=== PATIENT | female | born 1950 ===

== ENCOUNTER → 2024-02-04 09:58 | Outpatient (REF) | payer MEDICARE, BC, SELFPAY | LOC: HWRAD 09:58 | PROVIDERS: ATTENDING PHYSICIAN Urology; FAMILY PHYSICIAN Family Medicine | DX: N39.3 Stress incontinence (female) (male) (principal); N39.41 Urge incontinence; N39.0 Urinary tract infection, site not specified | CPT/HCPCS: 76770 ==

== ENCOUNTER 2024-03-26 17:06 | Inpatient (IN) | payer MEDICARE, BC, SELFPAY ==
[2024-03-26] VITALS (9 sets, daily range): BP systolic 129–156; BP diastolic 60–88; BMI 22.7
[2024-03-26 12:58] LABS: % Immature Granulocytes 0.6 % (0-0.5); % Lymphocytes 18.6 % (20.5-51.1); % Monocytes 14.6 % (1.7-9.3); % Neutrophils 63.2 % (42.2-75.2); Absolute Basophils 0.1 10^3/uL (0-0.2); Absolute Eosinophils 0.2 10^3/uL (0-0.7); Absolute Immature Granulocytes 0.1 10^3/uL (0-0.05); Absolute Monocytes 1.6 10^3/uL (0.1-0.6); Hematocrit 37.3 % (37.0-47.0); Hemoglobin 12.7 g/dL (12.0-16.0); Mean Corpuscular Hgb 30.6 pg (27.0-31.0); Mean Corpuscular Volume 89.9 fL (81.0-99.0); Mean Platelet Volume 9.2 fL (7.4-10.4); Nucleated Red Blood Cells % 0 %; Platelet Count 374 10^3/uL (130-400); Red Blood Cell Count 4.15 10^6/uL (4.20-5.40); Red Cell Dist. Width 13.5 % (11.5-14.5)
[2024-03-26 13:12] LABS: ALT (SGPT) 18 U/L (0-35); AST (SGOT) 40 U/L (14-36); Albumin 3.7 g/dl (3.5-5.0); Alkaline Phosphatase 77 U/L (38-126); Blood Urea Nitrogen 9 mg/dl (7-17); Calcium 9.6 mg/dl (8.4-10.2); Carbon Dioxide 27 mmol/L (22-30); Chloride 101 mmol/L (98-107); Glucose 103 mg/dl (70-99); Potassium 5.1 mmol/L (3.5-5.1); Sodium 134 mmol/L (135-145); Total Bilirubin 0.4 mg/dl (0.2-1.3); Total Protein 6.4 g/dl (6.3-8.2); eGFR > 60.00
[2024-03-26 13:23] LABS: Troponin I < 0.012 ng/ml
--- NOTE | 2024-03-26 14:48 | ED.GENMED ---
History of Present Illness
<Kate Matamoros PA-C - Last Filed: 03/26/24 21:36>
General
Chief Complaint: Chest Pain
Source: patient
Exam Limitations: none
Time Seen by Provider: 03/26/24 14:24
Nursing documentation reviewed up to this point in time: agreed with
Travel History
Have you had any contact with someone who has COVID-19?: No
Do you have any symptoms of coronavirus? Fever > 100 degrees, chills, cough, shortness of breath, sore throat, loss of taste or smell, muscle aches, or headache?: No
History of Present Illness
History of Present Illness:
Patient is a 74-year-old female with history of interstitial lung disease, Sjogren's presenting to the emergency department for evaluation of progressively worsening shortness of breath and chest pain. Patient initially noticed symptoms
approximately 1 week ago with progressive worsening since. She describes a pressure type pain in her left mid chest without any radiation. She endorses significant dyspnea, worse with exertion. Today�patient states she was unable to walk to her
car without becoming extremely winded and decided to come to the emergency department for further evaluation. She also notices worsening in shortness of breath while lying flat. Patient has had a very mild dry cough but denies any sputum
production. Patient denies any fever, chills, headache, pain in lower extremities or swelling in lower extremities. Patient denies any recent weight gain. Patient denies any recent travel or recent surgeries.
No personal or family history of blood clots.
Patient was recently seen by her manager house at [facility] on 03/16/24 without any known worsening in condition.
Review of Systems
<Kate Matamoros PA-C - Last Filed: 03/26/24 21:36>
Review of Systems
Allergies reviewed?: Yes
All Other Systems: ROS reviewed and negative except as documented in HPI and ROS
Phy Exam
<Kate Matamoros PA-C - Last Filed: 03/26/24 21:36>
Physical Exam
Physical Exam:
Vitals: Patient's vital signs are stable. Afebrile
General: Patient is well appearing, no acute distress. Nontoxic-appearing
Skin: Warm and dry, no rashes or lesions
Head: Normocephalic, atraumatic
Eyes: Sclera nonicteric. EOMs intact. No nystagmus.
Throat: Protecting airway
Neck: Normal ROM, no cervical spine tenderness, no meningismus. Trachea midline
Cardiac: Regular rate and rhythm, no murmurs. Chest wall nontender to palpation
Pulm: Mild increased work of breathing. Bibasilar crackles. No wheezing noted.
Abdomen: Abdomen soft. No abdominal tenderness.
Extremities: No evidence of cyanosis or edema. Good distal pulses
Neuro: AAOx3. CN II-XII intact. No focal neurologic deficits.
Psychiatric: Normal affect.
Scores
<Kate Matamoros PA-C - Last Filed: 03/26/24 21:36>
Heart Score for Chest Pain Patients
STEMI patient?: No
History: Slightly or Non-Suspicious
ECG: Normal
Age: >/= 65 years
Risk Factors: 1 or 2 Risk Factors
Troponin: </= Normal Limit
Heart Score for Chest Pain Patients: 3
Heart Score Risk: 2.5% MACE over next 6 weeks
Course
<Kate Matamoros PA-C - Last Filed: 03/26/24 21:36>
Orders/Labs/Results
Orders:
Orders
03/26/24 12:32
Electrocardiogram (*1) Urgent
Reason for Study: Chest Pain
03/26/24 12:33
EKG- Treatment ONCE
03/26/24 12:47
CR Chest - 2 Views Urgent
Comment:
Reason For Exam: CP/SOB
03/26/24 12:51
Complete Blood Count/With Diff Urgent
Comprehensive Metabolic Panel Urgent
NT-proBNP Urgent
Comment: BNP ADDED ON BY FLOOR 2:10PM 03-26-24
Troponin I Urgent
03/26/24 14:09
Add On- LAB Urgent
Tests Added?: BNP
03/26/24 Dinner
Regular
At Your Request: Full Participation
Does patient need a safe tray?: No
Regular diet: Gluten Free
03/26/24 16:53
Admit/Transfer Patient As Directed
Co-Sign Provider:
Level of Care: Inpatient admission
Assign to:: Telemetry
Physician / Group: Hospitalist
Diagnosis: ILD
Reason for Telemetry: Medication for Arrhythmia
Date to Stop Telemetry: 03/28/24
Time to Stop Telemetry: 11:00
Reason for Hospitalization: .
Expected length of stay greater than two midnights?: Yes
ELOS- Estimated Length of Stay in days: 3
I certify the patient meets the requirements for IP care: Yes
Code Status As Directed
Resuscitation Status: Full Code
03/26/24 17:40
Consult Pulmonary [PULMONARY CONSULT] Routine
Consulting Provider: Choco Gomez
Was physician already notified: Yes
Reason for consult: ILD with sob
DX Deep Vein Thrombosis Video Routine
03/26/24 18:00
MethylPREDNISolone PF [Solu-Medrol Pf] 40 mg IV Q12H
03/26/24 20:00
Heparin 5,000 units SC Q12
03/27/24 08:00
Pantoprazole [Protonix] 40 mg PO DAILY
03/28/24 11:00
DC Protocol for Telemetry ONCE
Abnormal Lab Results
03/26/24
12:51
WBC 11.0 H 10^3/uL
(4.8-10.8)
RBC 4.15 L 10^6/uL
(4.20-5.40)
Abs Immat Gran (auto) 0.1 H 10^3/uL
(0-0.05)
Absolute Neuts (auto) 7.0 H 10^3/uL
(1.4-6.5)
Absolute Monos (auto) 1.6 H 10^3/uL
(0.1-0.6)
Immature Gran % 0.6 H %
(0-0.5)
Lymphocytes % 18.6 L %
(20.5-51.1)
Monocytes % 14.6 H %
(1.7-9.3)
Sodium 134 L mmol/L
(135-145)
Glucose 103 H mg/dl
(70-99)
AST 40 H U/L
(14-36)
03/26/24 12:51
03/26/24 12:51
Vital Signs
Initial and Last Documented VS:
Initial Vital Signs
Temp Pulse Resp BP Pulse Ox
98.1 F 84 18 142/71 94
03/26/24 12:40 03/26/24 12:40 03/26/24 12:40 03/26/24 12:40 03/26/24 12:40
Last Documented Vital Signs
Temp Pulse Resp BP Pulse Ox
98.3 F 91 20 147/66 92
03/26/24 19:20 03/26/24 19:20 03/26/24 19:20 03/26/24 19:20 03/26/24 19:20
<Crissy Sagastume MD - Last Filed: 03/26/24 16:01>
Orders/Labs/Results
Orders:
Orders
03/26/24 12:32
Electrocardiogram (*1) Urgent
Reason for Study: Chest Pain
03/26/24 12:33
EKG- Treatment ONCE
03/26/24 12:47
CR Chest - 2 Views Urgent
Comment:
Reason For Exam: CP/SOB
03/26/24 12:51
Complete Blood Count/With Diff Urgent
Comprehensive Metabolic Panel Urgent
NT-proBNP Urgent
Comment: BNP ADDED ON BY FLOOR 2:10PM 03-26-24
Troponin I Urgent
03/26/24 14:09
Add On- LAB Urgent
Tests Added?: BNP
03/26/24 Dinner
Regular
At Your Request: Full Participation
Does patient need a safe tray?: No
Regular diet: Gluten Free
03/26/24 16:53
Admit/Transfer Patient As Directed
Co-Sign Provider:
Level of Care: Inpatient admission
Assign to:: Telemetry
Physician / Group: Hospitalist
Diagnosis: ILD
Reason for Telemetry: Medication for Arrhythmia
Date to Stop Telemetry: 03/28/24
Time to Stop Telemetry: 11:00
Reason for Hospitalization: .
Expected length of stay greater than two midnights?: Yes
ELOS- Estimated Length of Stay in days: 3
I certify the patient meets the requirements for IP care: Yes
Code Status As Directed
Resuscitation Status: Full Code
03/26/24 17:40
Consult Pulmonary [PULMONARY CONSULT] Routine
Consulting Provider: Choco Gomez
Was physician already notified: Yes
Reason for consult: ILD with sob
DX Deep Vein Thrombosis Video Routine
03/26/24 18:00
MethylPREDNISolone PF [Solu-Medrol Pf] 40 mg IV Q12H
03/26/24 20:00
Heparin 5,000 units SC Q12
03/27/24 08:00
Pantoprazole [Protonix] 40 mg PO DAILY
03/28/24 11:00
DC Protocol for Telemetry ONCE
Abnormal Lab Results
03/26/24
12:51
WBC 11.0 H 10^3/uL
(4.8-10.8)
RBC 4.15 L 10^6/uL
(4.20-5.40)
Abs Immat Gran (auto) 0.1 H 10^3/uL
(0-0.05)
Absolute Neuts (auto) 7.0 H 10^3/uL
(1.4-6.5)
Absolute Monos (auto) 1.6 H 10^3/uL
(0.1-0.6)
Immature Gran % 0.6 H %
(0-0.5)
Lymphocytes % 18.6 L %
(20.5-51.1)
Monocytes % 14.6 H %
(1.7-9.3)
Sodium 134 L mmol/L
(135-145)
Glucose 103 H mg/dl
(70-99)
AST 40 H U/L
(14-36)
03/26/24 12:51
03/26/24 12:51
Vital Signs
Initial and Last Documented VS:
Initial Vital Signs
Temp Pulse Resp BP Pulse Ox
98.1 F 84 18 142/71 94
03/26/24 12:40 03/26/24 12:40 03/26/24 12:40 03/26/24 12:40 03/26/24 12:40
Last Documented Vital Signs
Temp Pulse Resp BP Pulse Ox
98.3 F 91 20 147/66 92
03/26/24 19:20 03/26/24 19:20 03/26/24 19:20 03/26/24 19:20 03/26/24 19:20
<Kate Matamoros PA-C - Last Filed: 03/26/24 21:36>
MDM/Problems Addressed
Differential Diagnosis Includes:
Not limited to: Restrictive lung disease, interstitial lung disease, CHF, anemia, bronchitis, pneumonia, doubt PE or ACS
MDM/Problems Addressed:
74-year-old female with history interstitial lung disease, Sjogren's presenting with worsening dyspnea on exertion and mild chest discomfort over the past week. No fever, chills, productive cough. Patient recently seen by manager house at [facility]
without any noted acute worsening ILD. Patient's vital signs are stable on arrival she is oxygenating around 94 on room air. She is afebrile. Physical exam as above. Patient is well-appearing, in no apparent distress. Heart regular rate and
rhythm. She does have some mild increased work of breathing and bibasilar crackles noted on lung exam. No wheezing appreciated. No JVD. No evidence of peripheral edema. No edema of lower legs. Great distal pulses. EKG shows normal sinus
rhythm without any signs of acute ischemic changes. Labs obtained in triage without any clinically significant abnormalities. Initial troponin is normal. Given symptoms been ongoing for the past week or so�feel this is enough to rule out acute
CO. Will check proBNP. Will check chest x-ray. Will check walking pulse ox. Will monitor patient closely and reassess.
Chest x-ray shows signs of vascular congestion possibly volume overload versus CHF. proBNP is noted to be 379. It is possible that this could be an acute onset CHF without significant elevation in proBNP yet.
Patient was monitored for walking pulse ox which dipped very quickly per nurse to 80. Nurse placed patient back in bed and placed on 2 L nasal cannula with prompt improvement. Patient was able discontinue oxygen relatively quickly after laying
back down in bed.
Unsure if exertional shortness of breath may be due to possible early acute onset CHF versus worsening ILD. Will admit to hospitalist for further evaluation/management. Discussed with hospitalist. Discussed with patient.
Chronic conditions affecting care:
Interstitial lung disease
Acute Exacerbation and/or Progression of Chronic Illness:
Acute CHF versus worsening interstitial lung disease
<Kate Matamoros PA-C - Last Filed: 03/26/24 21:36>
*Radiology
Radiology exam reviewed: preliminary read by ED provider and radiology read reviewed
*Pulse Oximetry
Patient hypoxic: yes (Hypoxic to 80)
*EKG
Interpreted by ED Provider?: Yes
EKG Intrepretation Date: 03/26/24
Interpretation: abnormal
Comparison EKG: no comparison EKG present
Heart Rate: 90
Rate: normal
Rhythm: sinus and PVC's
QRS Pattern: normal QRS
Ischemia: no ischemia
*Litigation Services Manager Interpretation
Rate: normal
Interpretation: normal
Heart Rate: 78
Rhythm: sinus
*Critical Care Note
Total Time (30-74mins, 75-104mins- exclusive of procedures): Not Applicable
<Kate Matamoros PA-C - Last Filed: 03/26/24 21:36>
Patient Management
Discussion with other providers: Hospitalist
ED Attending Note
<Kate Matamoros PA-C - Last Filed: 03/26/24 21:36>
-
Portions of this chart may have been created with voice recognition software.� Occasional wrong word or��sound alike� substitutions may have occurred due to the inherent limitations of voice recognition software.
<Crissy Sagastume MD - Last Filed: 03/26/24 16:01>
ED Attending Note
Patient seen and examined by attending physician: Yes
I performed the substantive portion of visit, reviewed & personally made and approve the management plan that is documented in note by myself or TATIANA.: Yes
ED Attending Note:
Patient appears comfortable at rest but has crackles on lung exam. Her abdomen is soft and nontender. Patient does drop her pulse ox with ambulating. Of concern could be new onset congestive heart failure
Discharge Plan
Departure
Patient Disposition: Admit
Date of Disposition: 03/26/24
Time of Disposition: 15:46
Presentation/result/management discussed w/ accepting MD/DO: Hospitalist
Discharge Problem:
Exertional shortness of breath, Chest pain
Interventions
Interventions:
*Nursing Disposition Last Done: 03/26/24 17:38
ED- Cardiac Assessment Last Done: 03/26/24 14:32
Discharge Date and Time
Discharge Date/Time: 03/26/24 17:39
[2024-03-26 14:51] LABS: NT-proBNP 379 pg/ml
--- NOTE | 2024-03-26 16:44 | HPS.HSE ---
Family Physician
-
Family Physician: Yumiko Watson
Chief Complaint
-
SOB mostly on exertion
History of Present Illness
This is a 74 year old female with past medical history of interstitial lung disease who presents for dyspnea on exertion. The patient states she has been experiencing exertional sob for the past week. Yesterday she reports she was having increased
difficulty breathing with exertion, fatigue. She reported that she saw her primary x ray consultant a week ago and no changes were made. She was scheduled to have echocardiogram in next few months. She denies chest pain. She takes her medications
regularly. She was noticed to have mild leukocytosis admission. She denied cough or sputum production. She denied fever or chills
The ER, her oxygen dipped down to 80 upon going to the bathroom.
Medical History
Past Medical History
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
Past Surgical History: Reports Other (No recent major surgery)
Social History
Tobacco: Non-smoker
Alcohol: Occasional
Drug: None
Personal:
Living: With Family
Employment: Retired
Family History
Family History: Not pertinent
Allergies / Home Medications
Allergies reflects when Allergies were last updated in [facility].
Home Medications with original date entered in [facility]
Allergy/Medication List:
Allergies
Allergy/AdvReac Type Severity Reaction Status Date / Time
gluten Allergy Unknown Verified 03/26/24 12:46
pineapple Allergy Unknown Verified 03/26/24 12:46
Review of Systems
-
History Source: Patient
A 12 point ROS was completed and negative except as noted: Yes
Constitutional: Denies Fever or Chills
EENT: Denies Sore Throat
Respiratory: Reports Trouble Breathing
Cardiac: Denies Chest Pain
Abdomen/GI: Denies Abdominal Pain
: Denies Dysuria
Musculoskeletal: Denies Joint Pain or Joint Swelling
Skin: Denies Rash
Neurological: Denies Numbness
Endocrine: Denies Temp Intolerance
Hematologic/Lymphatic: Denies Bruising
Psych: Denies Panic Disorder
Physical Exam
Vital Signs
Vital Signs
Temp Pulse Resp BP Pulse Ox
98.1 F 79 16 141/60 96
03/26/24 12:40 03/26/24 16:15 03/26/24 16:15 03/26/24 16:00 03/26/24 16:15
Physical Exam
General: Well Nourished, No Apparent Distress and Comfortable
HEENT: Moist mucous membranes, Atraumatic and Nose Appears Normal
Respiratory: Rales (Mild rales at the bases, mostly inspiratory)
Cardiac: S1/S2 and Regular Rhythm
GI: Soft and Non Tender
Rectal: No Maroon Stools
Genito-urinary: No costovertebral tender
Musculoskeletal: No Clubbing, No Cyanosis and No Edema
Skin: Warm; No Jaundice
Neuro: AO x 3; No Slurred Speech, Facial Droop or Tremors
Psych: Calm and Intact Judgment/Insight
Laboratory Results
-
03/26/24 12:51
03/26/24 12:51
Laboratory Results
Total Bilirubin 0.4 mg/dl (0.2-1.3) 03/26/24 12:51
AST 40 U/L (14-36) H 03/26/24 12:51
ALT 18 U/L (0-35) 03/26/24 12:51
Alkaline Phosphatase 77 U/L (38-126) 03/26/24 12:51
Troponin I < 0.012 ng/ml 03/26/24 12:51
Impression/Plan
-
74 years old female with interstitial lung disease presented with worsening exertional shortness of breath over the last few days
# Nonspecific interstitial pneumonitis flareup
Admit the patient to the hospital
I reviewed patient's portal with [facility] per patient's permission . Patient has diagnosis of nonspecific interstitial pneumonitis. She had recent scan with contrast of the chest that findings were consistent with nonspecific interstitial pneumonitis
related to rheumatoid arthritis/connective tissue disease more than usual interstitial pneumonia.
Continue home medication including CellCept and start the patient on IV methylprednisone therapy
Doubt congestive heart failure with lack of distended JVD, peripheral edema, low proBNP
Monitor oxygen level and eventual home O2 evaluation
I did not appreciate wheezes upon examination. Negative troponin. EKG normal sinus rhythm without acute ischemic changes
Will consult pulmonary, appreciate input
# History of rheumatoid arthritis.
Will continue home medication without interruption.
# History of celiac disease.
# Hyponatremia at 134 upon admission. Monitor sodium level. No confusion
# History of GERD, continue PPI
#DVT prophylaxis
Total time spent to see the patient, examine the patient on the floor, review data and lab results, discuss treatment plan with patient, ER doctor, nursing staff around 75 minutes
[2024-03-26] MEDS: SOLU-MEDROL PF 40 MG IV (18:03)
--- NOTE | 2024-03-26 18:12 | PTCARENOTE ---
Received patient from ER at 1730, accompanied by . No c/o pain. Mild REBOLLAR denies chest pain , no short of breath at rest.
[2024-03-26] MEDS: HEPARIN 5000 UNITS SC (21:15)
[2024-03-26] MEDS: RESTASIS 0.05% OPHTHALMIC EMULSION 1 DROPS OPHTH (21:16)
[2024-03-26] MEDS: CELLCEPT 500 MG PO (21:18)
[2024-03-27 03:50] VITALS: BP 127/74
[2024-03-27] MEDS: SOLU-MEDROL PF 40 MG IV ×2 (05:37→17:46)
[2024-03-27] MEDS: FLUSH (NSS) 1 FLUSH IV (05:38)
[2024-03-27 06:00] VITALS: BMI 22.3
[2024-03-27 07:29] VITALS: BP 133/75
[2024-03-27] MEDS: HEPARIN 5000 UNITS SC ×2 (08:45→21:00)
[2024-03-27] MEDS: PLAQUENIL 400 MG PO (08:46)
[2024-03-27] MEDS: PROTONIX 40 MG PO (08:46)
[2024-03-27] MEDS: CELLCEPT 500 MG PO ×2 (08:46→21:09)
[2024-03-27] MEDS: RESTASIS 0.05% OPHTHALMIC EMULSION 1 DROPS OPHTH ×2 (08:47→21:08)
--- NOTE | 2024-03-27 09:10 | PTCARENOTE ---
Patient with Left eyebrow swollen achy and 'burning' - hospitalist aware . Area dry at present. Pt moved to isolation room as pt has shingles , valtrex started- on Contact and Airborne isolation.
--- NOTE | 2024-03-27 09:59 | W.PN.HOSP.TC ---
Today's Communication/Plan
-
Anti-viral TX for shingles.
Contact isolation
Steroid therapy
Eventual Home O2
Assessment / Plan
Assessment / Plan
Physical Exam
General: Well Nourished, No Apparent Distress and Comfortable
HEENT: Moist mucous membranes, Atraumatic and Nose Appears Normal
Respiratory: Rales (Mild rales at the bases, mostly inspiratory)
Cardiac: S1/S2 and Regular Rhythm
GI: Soft and Non Tender
Rectal: No Maroon Stools
Genito-urinary: No costovertebral tender
Musculoskeletal: No Clubbing, No Cyanosis and No Edema
Skin: Warm; No Jaundice
Neuro: AO x 3; No Slurred Speech, Facial Droop or Tremors
Psych: Calm and Intact Judgment/Insight
74 years old female with interstitial lung disease presented with worsening exertional shortness of breath over the last few days
# Nonspecific interstitial pneumonitis flare-up
She feels better, less sob upon walking
No hypoxia, not tested for ambulatory SaO2 yet, will do upon discharge
I reviewed patient's portal with [place] per patient's permission . Patient has diagnosis of nonspecific interstitial pneumonitis. She had recent scan with contrast of the chest that findings were consistent with nonspecific interstitial pneumonitis
related to rheumatoid arthritis/connective tissue disease more than usual interstitial pneumonia.
Continue home medication including CellCept
C/W IV methylprednisone therapy
Doubt congestive heart failure with lack of distended JVD, peripheral edema, low proBNP
I did not appreciate wheezes upon examination. Negative troponin. EKG normal sinus rhythm without acute ischemic changes
Will consult pulmonary, appreciate input
# Left upper eyelid acute shingles( acute localized zoster infection). No hx of shingles before. She had vaccine before so hopefully it will keep it mild
Vesicles noted on exam. Very few. She had itching, tingling and burning
Advise pt to avoid scratching or touching area to avoid inter-ocular spread
Stat on Acyclovir dose 1 gm TID. Contact isolation.
# History of rheumatoid arthritis.
Continue home medication without interruption.
# History of celiac disease. Continue with a gluten-free diet.
# Hyponatremia at 134 upon admission. Monitor sodium level in am. No confusion
# History of GERD, continue PPI
#DVT prophylaxis
Total time spent to see the patient, examine the patient on the floor, review data and lab results, discuss treatment plan with patient, nursing staff around 57 minutes
Anticipated Discharge: 24 - 48 hours
Subjective/Interval History
-
Date of Service: March 27, 2024
She feels better today, less sob when she walked
No chest pain
Left eye lid burning
Objective Data
-
Vital Signs:
Vital Signs
Temp Pulse Resp BP Pulse Ox
97.6 F 86 21 133/75 94
03/27/24 07:29 03/27/24 07:29 03/27/24 07:29 03/27/24 07:29 03/27/24 09:04
I&O
03/26/24 03/27/24 03/28/24
06:59 06:59 06:59
Intake Total 1200 / 1200
Balance 1200 / 1200
[2024-03-27 11:00] VITALS: BP 125/68
[2024-03-27] MEDS: VALTREX 1000 MG PO ×3 (11:07→21:09)
--- NOTE | 2024-03-27 12:18 | CON.PUL ---
Consultation
Consultation Request
Date/Time Consultation Requested: 03/27/2024
Date/Time Consultation Performed: 03/27/2024
Requesting Provider: Dr. Orellana
Performing Provider: Dr. Choco Marcum
Reason for Consultation: Acute hypoxemic respiratory failure-possible interstitial lung disease flar
Medical History
-
History of Present Illness:
74-year-old woman with past medical history of interstitial lung disease who presented to the hospital with exertional dyspnea. She usually follows up at [facility]. The first time here at [facility].
Patient reports worsening shortness of breath for the last week. Worsened significantly the day prior admission associated with fatigue.
She was seen by her vp human resources about a week ago and no changes were made in her medications. Denies any exertional chest pain. Denies any fevers or chills. She has been compliant with medication.
Denies swallowing problems. Denies any rash. Denies any back pain.
Denies GI or symptoms.
Pulse ox was down to 80% in the emergency room.
-
This morning he was noted to have vesicular rash around the left orbit. Diagnosed with shingles. Started on Valtrex.
-
Patient reports being diagnosed with interstitial lung disease about 7 years ago. Initially on oxygen. He was weaned off after starting immunosuppression.
She subsequently was diagnosed with rheumatoid arthritis/Sjogren's and celiac disease.
Her interstitial lung disease associated with rheumatoid arthritis.
Has been stable.
6 months ago CellCept was decreased to 500 twice a day. Prednisone has been at 5 mg p.o.
No new medication changes.
Past Medical History
Past Medical History: Other (See assessment and plan section)
Social History
Tobacco: Non-smoker
Alcohol: Occasional
Drug: None
Personal:
Living: With Family
Employment: Retired
Family History
Family History: Reviewed & Not Pertinent
Allergies / Home Medications
Allergies
Allergy/AdvReac Type Severity Reaction Status Date / Time
gluten Allergy Unknown Verified 03/26/24 12:46
pineapple Allergy Unknown Verified 03/26/24 12:46
Home Medications
�Medication �Instructions �Recorded �Confirmed �Last Taken �Type
cyclosporine 0.05 % eye drops in a 1 drp BOTH EYES Q12H 03/26/24 03/26/24 03/25/24 History
dropperette (Restasis)
hydroxychloroquine 200 mg tablet 400 mg PO DAILY 03/26/24 03/26/24 03/25/24 History
ibuprofen 800 mg tablet 800 mg PO DAILYPRN PRN mild pain 03/26/24 03/26/24 03/25/24 History
montelukast 10 mg tablet 10 mg PO HS 03/26/24 03/26/24 03/25/24 History
mycophenolate mofetil 500 mg tablet 500 mg PO BID 03/26/24 03/26/24 03/25/24 History
omeprazole 40 mg capsule,delayed 40 mg PO DAILY 03/26/24 03/26/24 03/25/24 History
release
prednisone 1 mg tablet 5 mg PO DAILY 03/26/24 03/26/24 03/25/24 History
Review of Systems
-
History Source: Patient
All other systems: Negative unless noted
Vitals / Labs / Diagnostic Testing
Vital Signs
Temp Pulse Resp BP Pulse Ox
97.9 F 87 16 125/68 95
03/27/24 11:00 03/27/24 11:00 03/27/24 11:00 03/27/24 11:00 03/27/24 11:30
Lab Data
03/26/24 12:51
03/26/24 12:51
Diagnostic Testing:
Physical Exam
-
HEENT: Normocephalic
Cardiovascular: S1/S2
Respiratory: Rales (Bibasilar)
GI: Soft and Non Distended
Neurology: Awake, Alert, Oriented and No Motor Deficits
Skin: Warm and Other (Left periorbital rash vesicular)
General: Comfortable
Assessment
-
74-year-old woman with history of interstitial lung disease on immunosuppression CellCept/low-dose prednisone, follows up at [facility]. Here for shortness of breath over 1 week. There is no prior imaging to compare. Patient
usually not on supplemental oxygen.
Reports worsening symptoms to the point that it was interfering with day-to-day activities. Came to the hospital 03/26/2024 for evaluation. We were consulted for evaluation.
Acute hypoxemic respiratory insufficiency.
Chest x-ray: Increased interstitial markings bilaterally. No prior to compare. No pleural effusion.
proBNP and troponins negative
Normal renal function
Normal LFTs
Leukocytosis/without anemia or peripheral eosinophilia.
Shingles
Conditions present prior admission:
Rheumatoid arthritis-hydroxychloroquine
Rheumatoid arthritis associated ILD: On chronic immunosuppression therapy-mycophenolate/prednisone 5 mg-diagnosed 7 years ago.
Follows up at [facility]
CellCept decreased to 500 twice a day 6 months ago.
Celiac disease
Sjogren's disease
Assessment and plan:
No records available in regards to her interstitial lung disease. Not on oxygen therapy at home.
Reports history of rheumatoid arthritis associated ILD.
Currently stable overnight.
Bibasilar crackles on exam: Patient states that her crackles in the past had resolved with immunosuppression.
-
Afebrile.
Not require supplemental oxygen at rest. Does have oxygen desaturation with exertion which is new for her.
Eventual home oxygen assessment closer to discharge.
Started on high-dose of steroid for possible ILD flareup-Methylprednisolone IV. Continue for now.
No signs of infection at this point/no evidence for volume overload or heart failure either.
Holding antibiotics and observing
To better evaluate her lung parenchyma will obtain a CT of the chest without IV contrast.
Based on results we can formulate plan.
At this point doubt any infection but will need to be vigilant given the ongoing immunosuppression.
-
Differential diagnosis includes opportunistic infection but at this point no high suspicion for infection. Patient not on PCP prophylaxis.
Will continue to observe.
-
Shingles: Isolation-left periorbital rash.
Valtrex
Management per primary team
-
DVT prophylaxis with subcu heparin.
-
Follow-up with [facility] after discharge.
--- NOTE | 2024-03-27 13:36 | CM ---
grocery store manager reviewed patient's chart and met with patient and patient lives with spouse in a split level home, with 6 steps to enter, patient is independent with adl's and ambulation, no dme, Patient uses [facility].
PCP: Dr. Watson
Plan; Home with spouse when stable no needs.
[2024-03-27 15:00] VITALS: BP 143/71
[2024-03-27] MEDS: TYLENOL 1000 MG PO (16:01)
[2024-03-27 19:39] VITALS: BP 162/76
[2024-03-27 23:50] VITALS: BP 165/70
[2024-03-28 03:40] VITALS: BP 133/61
[2024-03-28 05:44] VITALS: BMI 22.2
[2024-03-28] MEDS: SOLU-MEDROL PF 40 MG IV ×2 (06:08→17:28)
[2024-03-28 07:00] VITALS: BP 119/60
[2024-03-28 08:18] LABS: Hematocrit 34.7 % (37.0-47.0); Mean Corp Hgb Conc. 34.6 g/dL (33.0-37.0); Mean Corpuscular Hgb 30.8 pg (27.0-31.0); Mean Platelet Volume 10.2 fL (7.4-10.4); Platelet Count 411 10^3/uL (130-400); Red Cell Dist. Width 13.1 % (11.5-14.5); White Blood Cell Count 15.6 10^3/uL (4.8-10.8)
--- NOTE | 2024-03-28 08:36 | W.PN.HOSP.TC ---
Today's Communication/Plan
-
Cont iv steroids, pulm reeval
Assessment / Plan
Assessment / Plan
Physical Exam
General: Well Nourished, No Apparent Distress and Comfortable
HEENT: Moist mucous membranes, Atraumatic and Nose Appears Normal
Respiratory: Rales (Mild rales at the bases, mostly inspiratory)
Cardiac: S1/S2 and Regular Rhythm
GI: Soft and Non Tender
Rectal: No Maroon Stools
Genito-urinary: No costovertebral tender
Musculoskeletal: No Clubbing, No Cyanosis and No Edema
Skin: Warm; No Jaundice
Neuro: AO x 3; No Slurred Speech, Facial Droop or Tremors
Psych: Calm and Intact Judgment/Insight
A/P:
74 years old female with interstitial lung disease presented with worsening exertional shortness of breath over the last few days
# Nonspecific interstitial pneumonitis flare-up
She feels better, less sob upon walking
No hypoxia, not tested for ambulatory SaO2 yet, will do upon discharge
Dr Orellana reviewed patient's portal with [facility] per patient's permission . Patient has diagnosis of nonspecific interstitial pneumonitis. She had recent scan with contrast of the chest that findings were consistent with nonspecific interstitial
pneumonitis related to rheumatoid arthritis/connective tissue disease more than usual interstitial pneumonia.
Continue home medication including CellCept
C/W IV methylprednisone therapy
Doubt congestive heart failure with lack of distended JVD, peripheral edema, low proBNP
I did not appreciate wheezes upon examination. Negative troponin. EKG normal sinus rhythm without acute ischemic changes
Consulted pulmonary, appreciate input
CT chest done last evening-->F/u pulm further recommendations
Discussed with family at bedside
# Left upper eyelid acute shingles( acute localized zoster infection). No hx of shingles before. She had vaccine before so hopefully it will keep it mild
Vesicles noted on exam. Very few. She had itching, tingling and burning
Advise pt to avoid scratching or touching area to avoid inter-ocular spread
Cont on Acyclovir dose 1 gm TID. Contact isolation.
# History of rheumatoid arthritis.
Continue home medication without interruption.
# History of celiac disease. Continue with a gluten-free diet.
# Hyponatremia at 134 upon admission. Monitor sodium level in am. No confusion
# History of GERD, continue PPI
#DVT prophylaxis
Anticipated Discharge: 24 - 48 hours
Subjective/Interval History
-
Date of Service: March 28, 2024
pte feels better overall but had episode of increased sob and tightness today, no fever
Objective Data
-
Labs:
Laboratory Results
03/28/24
07:00
WBC 15.6 H
Hgb 12.0
Hct 34.7 L
Plt Count 411 H
Sodium Pending
Potassium Pending
Chloride Pending
Carbon Dioxide Pending
BUN Pending
Creatinine Pending
Glucose Pending
Calcium Pending
Vital Signs:
Vital Signs
Temp Pulse Resp BP Pulse Ox
98.0 F 87 16 119/60 95
03/28/24 07:00 03/28/24 07:00 03/28/24 07:00 03/28/24 07:00 03/28/24 07:00
I&O
03/27/24 03/28/24 03/29/24
06:59 06:59 06:59
Intake Total 1200 / 1200 2280 / 2280
Balance 1200 / 1200 2280 / 2280
[2024-03-28 09:09] LABS: Blood Urea Nitrogen 15 mg/dl (7-17); Calcium 9.1 mg/dl (8.4-10.2); Carbon Dioxide 21 mmol/L (22-30); Chloride 104 mmol/L (98-107); Estimated Creatinine Clearance 79 ml/min; Glucose 114 mg/dl (70-99); Potassium 4.8 mmol/L (3.5-5.1); Sodium 135 mmol/L (135-145); eGFR > 60.00
[2024-03-28] MEDS: PLAQUENIL 400 MG PO (09:31)
[2024-03-28] MEDS: PROTONIX 40 MG PO (09:32)
[2024-03-28] MEDS: RESTASIS 0.05% OPHTHALMIC EMULSION 1 DROPS OPHTH ×2 (09:32→20:30)
[2024-03-28] MEDS: VALTREX 1000 MG PO ×3 (09:32→20:30)
[2024-03-28] MEDS: HEPARIN 5000 UNITS SC ×2 (09:32→20:30)
[2024-03-28] MEDS: CELLCEPT 500 MG PO ×2 (09:32→20:37)
[2024-03-28 11:36] VITALS: BP 146/75
[2024-03-28] MEDS: TYLENOL 1000 MG PO (12:43)
--- NOTE | 2024-03-28 15:23 | W.PN.PUL3 ---
Today's Communication / Plan
-
Continue with systemic steroids with Solu-Medrol and reduce as tolerated
Check CRP level in the morning and depending on level I may start to transition to PO prednisone taper tomorrow
Ultimately she will taper down to her home dose of prednisone, 5 mg daily
Up OOB as tolerated
Encourage incentive spirometer use
Eventual outpatient follow-up with her roll on man, Dr. Hidalgo at [facility]
Assessment
-
74-year-old woman with history of interstitial lung disease on immunosuppression CellCept/low-dose prednisone, follows up at [facility]. Here for shortness of breath over 1 week. There is no prior imaging to compare. Patient
usually not on supplemental oxygen.
Reports worsening symptoms to the point that it was interfering with day-to-day activities. Came to the hospital 03/26/2024 for evaluation. We were consulted for evaluation.
Impression:
Acute hypoxemic respiratory insufficiency - suspect this is due to an acute ILD flare; she denies feeling 'sick' prior to her shortness of breath symptoms started
Chest x-ray: Increased interstitial markings bilaterally. No prior to compare. No pleural effusion
Chest CT shows nonspecific diffuse bilateral upper/lower lobe GGO with mild�moderate irregular linear/reticular interstitial thickening most pronounced at the bases
proBNP and troponins negative
Normal renal function
Normal LFTs
Leukocytosis/without anemia or peripheral eosinophilia.
Shingles
Conditions present prior admission:
Rheumatoid arthritis-hydroxychloroquine
Rheumatoid arthritis associated ILD: On chronic immunosuppression therapy-mycophenolate/prednisone 5 mg-diagnosed 7 years ago --> her MMF dose was reduced about 4-6 months ago from 1g BID to 500mg BID
Follows up at [facility] with Dr. Hidalgo.
CellCept decreased to 500 twice a day 4-6 months ago.
Celiac disease
Sjogren's disease
Assessment and plan:
No records available in regards to her interstitial lung disease. Not on oxygen therapy at home.
Reports history of rheumatoid arthritis associated ILD.
Bibasilar crackles on exam: Patient states that her crackles in the past had resolved with immunosuppression.
-
Afebrile.
Does not require supplemental oxygen at rest. Does have oxygen desaturation with exertion which is new for her and she admits dyspnea on exertion as well
Eventual home oxygen assessment closer to discharge.
Started on high-dose of steroid for suspected ILD flareup-Methylprednisolone IV --> check CRP tomorrow and depending on severity I may transition to PO prednisone with extended taper.
No signs of infection at this point/no evidence for volume overload or heart failure either.
Holding antibiotics and observing
CT chest performed on 03/27/2024 showing diffuse bilateral GGO with reticular opacities most pronounced at the bases (L >R), likely due to NSIP in the setting of RA-associated ILD
Would continue with systemic steroids at this point and wean as tolerated � currently on Solu-Medrol 40 mg IV q12hr
At this point doubt any infection but will need to be vigilant given the ongoing immunosuppression.
-
Differential diagnosis includes opportunistic infection but at this point no high suspicion for infection. Patient not on PCP prophylaxis, however given the patient is on prednisone <20 mg daily + mycophenolate, and does not have any
immunodeficiency nor is she a transplant recipient, hence I do not believe that she she qualifies for PCP prophylaxis
Will continue to observe.
-
Shingles: Isolation-left periorbital rash.
Valtrex
Management per primary team
-
DVT prophylaxis with subcu heparin.
-
Follow-up with [facility] after discharge with Dr. Hidalgo. I advised the patient that upon discharge she should obtain a CD of the CT chest that we have performed during this hospitalization, so that she can bring this to her
roll on man for their review and for their records.
Pulmonary service will continue to follow along while she remains here as an inpatient.
Total time spent today was 35 minutes for this encounter. Time includes reviewing laboratory test/imaging results, reviewing pertinent medical records, obtaining and reviewing medical history, performing an appropriate exam, ordering medications,
tests and procedures. Time also includes documentation of this encounter, coordinating patient care and communicating with other healthcare professionals. Total time does not include separately billed tests performed on this date of service.
Subjective Data
-
Date of Service:
Date of Service: March 28, 2024
Chief Complaint: Pulmonary Follow Up
Subjective:
Patient seen and evaluated today at bedside. Currently on room air breathing comfortably. Eager to go home. She denies chest pain, headache, fevers or chills.
Review of Systems
General: Other (Negative unless mentioned above)
Objective Data
Data Reviewed
Vital Signs / I&O / Oxygen:
Vital Signs
Temp Pulse Resp BP Pulse Ox
97.6 F 92 16 146/75 94
03/28/24 11:36 03/28/24 11:36 03/28/24 11:36 03/28/24 11:36 03/28/24 11:36
Intake and Output
03/27/24 03/28/24 03/29/24
06:59 06:59 06:59
Intake Total 1200 / 1200 2280 / 2280
Balance 1200 / 1200 2280 / 2280
SaO2 94
Physical Exam
General: Respiratory Distress (Negative) and Comfortable
HEENT: Normocephalic and Anicteric
Cardiovascular: S1-S2 and Peripheral Edema (Negative)
Respiratory: Wheeze (Negative), Crackles (Bibasilar), Rhonchi (Negative) and Non-Labored Respirations
GI: Soft, Non Distended, Non Tender and Normal Bowel Sounds
Neurology: AO x 3 and Tremors (Negative)
Skin: Warm, Dry and Cyanosis (Negative)
Labs/Micro/Reports
Lab Data
03/28/24 07:00
03/28/24 07:00
[2024-03-28 15:36] VITALS: BP 113/69
[2024-03-28 19:25] VITALS: BP 150/80
[2024-03-28 23:07] VITALS: BP 140/73
[2024-03-29 03:50] VITALS: BP 130/67
[2024-03-29 06:00] VITALS: BMI 22.1
[2024-03-29] MEDS: SOLU-MEDROL PF 40 MG IV (06:14)
[2024-03-29 07:30] VITALS: BP 144/70
[2024-03-29 07:53] LABS: Erythrocyte Sed Rate 23 mm/hour (0-20)
[2024-03-29] MEDS: RESTASIS 0.05% OPHTHALMIC EMULSION 1 DROPS OPHTH (08:25)
[2024-03-29] MEDS: PROTONIX 40 MG PO (08:26)
[2024-03-29] MEDS: CELLCEPT 500 MG PO (08:26)
[2024-03-29] MEDS: VALTREX 1000 MG PO (08:26)
[2024-03-29] MEDS: HEPARIN 5000 UNITS SC (08:39)
[2024-03-29] MEDS: PLAQUENIL 400 MG PO (08:41)
--- NOTE | 2024-03-29 08:58 | W.PN.HOSP.TC ---
Today's Communication/Plan
-
d/c planning today
Assessment / Plan
Assessment / Plan
Physical Exam
General: Well Nourished, No Apparent Distress and Comfortable
HEENT: Moist mucous membranes, Atraumatic and Nose Appears Normal
Respiratory: Rales (Mild rales at the bases, mostly inspiratory)
Cardiac: S1/S2 and Regular Rhythm
GI: Soft and Non Tender
Rectal: No Maroon Stools
Genito-urinary: No costovertebral tender
Musculoskeletal: No Clubbing, No Cyanosis and No Edema
Skin: Warm; No Jaundice
Neuro: AO x 3; No Slurred Speech, Facial Droop or Tremors
Psych: Calm and Intact Judgment/Insight
A/P:
74 years old female with interstitial lung disease presented with worsening exertional shortness of breath over the last few days
# Nonspecific interstitial pneumonitis flare-up
She feels better, less sob upon walking
No hypoxia, not tested for ambulatory SaO2 yet, will do upon discharge
Dr Orellana reviewed patient's portal with [place] per patient's permission . Patient has diagnosis of nonspecific interstitial pneumonitis. She had recent scan with contrast of the chest that findings were consistent with nonspecific interstitial
pneumonitis related to rheumatoid arthritis/connective tissue disease more than usual interstitial pneumonia.
Continue home medication including CellCept
C/W IV methylprednisone therapy--> switch to oral steroids. Discussed with pulm and ok for d/c today
Doubt congestive heart failure with lack of distended JVD, peripheral edema, low proBNP
I did not appreciate wheezes upon examination. Negative troponin. EKG normal sinus rhythm without acute ischemic changes
Consulted pulmonary, appreciate input
CT chest done last evening-->F/u pulm further recommendations
Discussed with family at bedside
# Left upper eyelid acute shingles( acute localized zoster infection). No hx of shingles before. She had vaccine before so hopefully it will keep it mild
Vesicles noted on exam. Very few. She had itching, tingling and burning
Advise pt to avoid scratching or touching area to avoid inter-ocular spread
Cont on Acyclovir dose 1 gm TID. Contact isolation.
# History of rheumatoid arthritis.
Continue home medication without interruption.
# History of celiac disease. Continue with a gluten-free diet.
# Hyponatremia at 134 upon admission. Monitor sodium level in am. No confusion
# History of GERD, continue PPI
#DVT prophylaxis
Anticipated Discharge: Today
Subjective/Interval History
-
Date of Service: March 29, 2024
pte feels well overall today
Objective Data
-
Vital Signs:
Vital Signs
Temp Pulse Resp BP Pulse Ox
97.9 F 73 19 144/70 97
03/29/24 07:30 03/29/24 07:30 03/29/24 07:30 03/29/24 07:30 03/29/24 07:30
I&O
03/28/24 03/29/24 03/30/24
06:59 06:59 06:59
Intake Total 2280 / 2280 1740 / 1740
Balance 2280 / 2280 1740 / 1740
--- NOTE | 2024-03-29 10:59 | W.PN.PUL3 ---
Today's Communication / Plan
-
CRP 13.5 today and ESR 23 --> these show that her inflammatory status is markedly improved. I feel comfortable transitioning her to PO prednisone with extended taper. Would start with 50mg and reduce by 10mg every 4th day until back to her home
dose of 5mg daily.
Up OOB as tolerated
Encourage incentive spirometer use
Eventual outpatient follow-up with her heating and ventilating worker, Dr. Hidalgo at [facility]
Patient being prepared for discharge home today. Pulmonary service will now sign off. Please reconsult if there are any additional questions/concerns, or if patient's respiratory status deteriorates.
Assessment
-
74-year-old woman with history of interstitial lung disease on immunosuppression CellCept/low-dose prednisone, follows up at [facility]. Here for shortness of breath over 1 week. There is no prior imaging to compare. Patient
usually not on supplemental oxygen.
Reports worsening symptoms to the point that it was interfering with day-to-day activities. Came to the hospital 03/26/2024 for evaluation. We were consulted for evaluation.
Impression:
Acute hypoxemic respiratory insufficiency - suspect this is due to an acute ILD flare; she denies feeling 'sick' prior to her shortness of breath symptoms started
Chest x-ray: Increased interstitial markings bilaterally. No prior to compare. No pleural effusion
Chest CT shows nonspecific diffuse bilateral upper/lower lobe GGO with mild�moderate irregular linear/reticular interstitial thickening most pronounced at the bases
proBNP and troponins negative
Normal renal function
Normal LFTs
Leukocytosis/without anemia or peripheral eosinophilia.
Shingles
Conditions present prior admission:
Rheumatoid arthritis-hydroxychloroquine
Rheumatoid arthritis associated ILD: On chronic immunosuppression therapy-mycophenolate/prednisone 5 mg-diagnosed 7 years ago --> her MMF dose was reduced about 4-6 months ago from 1g BID to 500mg BID
Follows up at [facility] with Dr. Hidalgo.
CellCept decreased to 500 twice a day 4-6 months ago.
Celiac disease
Sjogren's disease
Assessment and plan:
No records available in regards to her interstitial lung disease. Not on oxygen therapy at home.
Reports history of rheumatoid arthritis associated ILD.
Bibasilar crackles on exam: Patient states that her crackles in the past had resolved with immunosuppression.
-
Afebrile.
Does not require supplemental oxygen at rest. Does have oxygen desaturation with exertion which is new for her and she admits dyspnea on exertion as well
Eventual home oxygen assessment closer to discharge.
Started on high-dose of steroid for suspected ILD flareup-Methylprednisolone IV --> CRP 13.5 today and ESR 23 --> these show that her inflammatory status is markedly improved. I feel comfortable transitioning her to PO prednisone with extended
taper. Would start with 50mg and reduce by 10mg every 4th day until back to her home dose of 5mg daily.
No signs of infection at this point/no evidence for volume overload or heart failure either.
Holding antibiotics and observing
CT chest performed on 03/27/2024 showing diffuse bilateral GGO with reticular opacities most pronounced at the bases (L >R), likely due to NSIP in the setting of RA-associated ILD
Would continue with systemic steroids at this point and wean as tolerated � currently on Solu-Medrol 40 mg IV q12hr
At this point doubt any infection but will need to be vigilant given the ongoing immunosuppression.
-
Differential diagnosis includes opportunistic infection but at this point no high suspicion for infection. Patient not on PCP prophylaxis, however given the patient is on prednisone <20 mg daily + mycophenolate, and does not have any
immunodeficiency nor is she a transplant recipient, hence I do not believe that she she qualifies for PCP prophylaxis
Will continue to observe.
-
Shingles: Isolation-left periorbital rash.
Valtrex
Management per primary team
-
DVT prophylaxis with subcu heparin.
-
Follow-up with [facility] after discharge with Dr. Porteous. I advised the patient that upon discharge she should obtain a CD of the CT chest that we have performed during this hospitalization, so that she can bring this to her
heating and ventilating worker for their review and for their records.
Patient is being prepared for discharge home today. Pulmonary service will now sign off. Thank you for allowing us to be involved in the care of this patient. Please reconsult if there are any additional questions/concerns, or if patient's
respiratory status deteriorates.
Total time spent today was 35 minutes for this encounter. Time includes reviewing laboratory test/imaging results, reviewing pertinent medical records, obtaining and reviewing medical history, performing an appropriate exam, ordering medications,
tests and procedures. Time also includes documentation of this encounter, coordinating patient care and communicating with other healthcare professionals. Total time does not include separately billed tests performed on this date of service.
Subjective Data
-
Date of Service:
Date of Service: March 29, 2024
Chief Complaint: Pulmonary Follow Up
Subjective:
Patient seen and evaluated today at bedside. She feels well overall today and is eager to go home. No fevers overnight. She currently still feels short of breath with exertion but it is improved. Denies chest pain, headache, fevers or chills.
Review of Systems
General: Other (Negative unless mentioned above)
Objective Data
Data Reviewed
Vital Signs / I&O / Oxygen:
Vital Signs
Temp Pulse Resp BP Pulse Ox
97.9 F 73 19 144/70 97
03/29/24 07:30 03/29/24 07:30 03/29/24 07:30 03/29/24 07:30 03/29/24 07:30
Intake and Output
03/28/24 03/29/24 03/30/24
06:59 06:59 06:59
Intake Total 2280 / 2280 1740 / 1740
Balance 2280 / 2280 1740 / 1740
SaO2 97
Physical Exam
General: Respiratory Distress (Negative) and Comfortable
HEENT: Normocephalic and Anicteric
Cardiovascular: S1-S2 and Peripheral Edema (Negative)
Respiratory: Wheeze (Negative), Crackles (Bibasilar), Rhonchi (Negative) and Non-Labored Respirations
GI: Soft, Non Distended, Non Tender and Normal Bowel Sounds
Neurology: AO x 3 and Tremors (Negative)
Skin: Warm, Dry and Cyanosis (Negative)
Labs/Micro/Reports
Lab Data
03/28/24 07:00
03/28/24 07:00
--- NOTE | 2024-03-29 11:01 | PTCARENOTE ---
Patient with left eyebrow mild edema some small fluid filled areas noted mid brow. Patient states they 'burn ' at times, but not painful. Able to make needs known.
[2024-03-29 11:20] VITALS: BP 137/68
--- NOTE | 2024-03-29 13:44 | W.DCSUMMARY ---
Discharge Summary
Discharge Data
Date of Admission: 03/26/24
Date of Discharge: 03/29/24
-
Pending Results: No
Hospital Course
Patient 74 years old female with history interstitial lung disease associated with rheumatoid arthritis and Sjogren's disease presented to the hospital with increasing shortness of breath and cough. Pulmonary consulted. Patient was started on IV
steroids. Patient also was noticed to have shingles in the left periorbital area and she was started on valacyclovir and to complete a 7-10 days course as outpatient. Patient was not started on any antibiotics since no signs of active infection.
Patient also was euvolemic. She had a CT scan of the chest that shows evidence of interstitial lung disease. Patient did well rest of hospital stay. She was able to be switched to oral steroids and plans to taper steroids as outpatient.
Pulmonary cleared her for discharge today. 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 Patient is hemodynamically stable and symptomatically improved. Patient is going to be discharged today in stable condition.
Discharge duration: 35 minutes
Discharge Plan
-
Patient Disposition: Home (Routine Discharge)
Discharge Diagnosis/Procedures: Interstitial lung disease. Acute hypoxemic respiratory insufficiency. Shingles.
Diet: Low Cholesterol
Activity: As tolerated
Driving Restrictions: As prior to admission
Blood Work: PCP to order CBC, BMP within 1 week
Referrals:
Choco Gomez MD [Active] - in two to four weeks
Yumiko Watson DO [Family Provider] - in less than 1 week
Prescriptions:
New
valacyclovir 500 mg Tablet
1,000 mg PO TID 7 Days Qty: 42 0RF
prednisone 10 mg Tablet
See Rx Instructions .ROUTE .COMPLEX Qty: 60 0RF
Rx Instructions:
Take By Mouth:
50 mg daily x4 days, 40 mg daily x4 days,
30 mg daily x4 days, 20 mg daily x4 days,
10 mg daily x3 days
Continued
ibuprofen 800 mg Tablet
800 mg PO DAILYPRN PRN (Reason: mild pain)
omeprazole 40 mg capsule,delayed release(DR/EC)
40 mg PO DAILY
mycophenolate mofetil 500 mg tablet
500 mg PO BID
montelukast 10 mg tablet
10 mg PO HS
hydroxychloroquine 200 mg tablet
400 mg PO DAILY
cyclosporine [Restasis] 0.05 % dropperette
1 drp BOTH EYES Q12H
Held
prednisone 1 mg Tablet
5 mg PO DAILY
Hold Instructions: Resume on 04/13/24.
Discharge Orders:
Discharge Patient (As Directed); Ordered 03/29/24
Ordered By: Hero Lou
Discharge Date and Time
Discharge Date/Time: 03/29/24 14:32
Print Language: MOHAWK
== END 2024-03-29 14:32 | disposition home or self-care (01) | DRG 197 ==
LOC: 4 WEST ACU 17:06
PROVIDERS: Emergency Medicine; Internal Medicine Critical Care Medicine; ADMITTING PHYSICIAN Internal Medicine; ATTENDING PHYSICIAN Hospitalist; CONSULT PHYSICIAN Internal Medicine Critical Care Medicine; EMERGENCY PHYSICIAN Emergency Medicine; FAMILY PHYSICIAN Family Medicine
DX: J84.89 Other specified interstitial pulmonary diseases (principal); E87.1 Hypo-osmolality and hyponatremia; R09.02 Hypoxemia; B02.9 Zoster without complications; M06.9 Rheumatoid arthritis, unspecified; M35.00 Sjogren syndrome, unspecified; D72.829 Elevated white blood cell count, unspecified; K90.0 Celiac disease; K21.9 Gastro-esophageal reflux disease without esophagitis; Z79.60 Long term (current) use of unspecified immunomodulators and immunosuppressants
CPT/HCPCS: 71046; 71250; 80048; 80053; 83880; 84484; 85025; 85027; 85652; 86140; 93005; 99285

== ENCOUNTER → 2025-02-21 10:22 | Outpatient (REF) | payer MEDICARE, BC, SELFPAY ==
[2025-02-21 11:30] LABS: % Eosinophils 1.1 % (0-6); % Immature Granulocytes 0.4 % (0-0.5); % Lymphocytes 13.2 % (20.5-51.1); % Monocytes 4.5 % (1.7-9.3); % Neutrophils 79.8 % (42.2-75.2); Absolute Basophils 0.1 10^3/uL (0-0.2); Absolute Eosinophils 0.1 10^3/uL (0-0.7); Absolute Lymphocytes 1.1 10^3/uL (1.2-3.4); Absolute Monocytes 0.4 10^3/uL (0.1-0.6); Absolute Neutrophils 6.7 10^3/uL (1.4-6.5); Hematocrit 34.7 % (37.0-47.0); Hemoglobin 11.4 g/dL (12.0-16.0); Mean Corp Hgb Conc. 32.9 g/dL (33.0-37.0); Mean Corpuscular Hgb 29.3 pg (27.0-31.0); Mean Corpuscular Volume 89.2 fL (81.0-99.0); Mean Platelet Volume 10.3 fL (7.4-10.4); Nucleated Red Blood Cells % 0 %; Platelet Count 355 10^3/uL (130-400); Red Blood Cell Count 3.89 10^6/uL (4.20-5.40); Red Cell Dist. Width 13.1 % (11.5-14.5); White Blood Cell Count 8.4 10^3/uL (4.8-10.8)
[2025-02-21 13:10] LABS: Blood Urea Nitrogen 10 mg/dl (7-17); Calcium 9.4 mg/dl (8.4-10.2); Carbon Dioxide 21 mmol/L (22-30); Chloride 109 mmol/L (98-107); Glucose 102 mg/dl (70-99); Potassium 4.8 mmol/L (3.5-5.1); Sodium 138 mmol/L (135-145); eGFR > 60.00
== END ==
LOC: RCS 10:22
PROVIDERS: ATTENDING PHYSICIAN Orthopaedic Surgery; FAMILY PHYSICIAN Internal Medicine
DX: Z01.818 Encounter for other preprocedural examination (principal)
CPT/HCPCS: 36415; 80048; 85025; 93005